=== PATIENT | male | born 1995 | race Two or more races ===

== ENCOUNTER 2021-03-03 22:03 | Emergency (ER) | payer BC ==
[~2021-03-03] VITALS: Ht 167.6 cm; Wt 88.6 kg
[2021-03-03 22:11] VITALS: BP 131/84; Ht 167.6 cm; Wt 88.6 kg
[2021-03-03] MEDS ORDERED: PREDNISONE50 MG PO (22:43)
[2021-03-03] MEDS ORDERED: ZANAFLEX4 MG PO (22:43)
[2021-03-03] MEDS ORDERED: NAPROSYN500 MG PO (22:43)
== END 2021-03-03 22:52 | disposition home or self-care (01) ==
LOC: D.ER 22:03
DX: S39.012A Strain of muscle, fascia and tendon of lower back, initial encounter (principal); X58.XXXA Exposure to other specified factors, initial encounter